=== PATIENT | female | born 1955 | race Caucasian/White ===

== ENCOUNTER → 2017-12-06 09:06 | Outpatient (CLI) | payer OTHER, SELFPAY ==
[2017-12-06 11:22] LABS: Alanine Aminotransferase 37 IU/L (9-52); Albumin Globulin Ratio 1.3 (1.0-2.8); Alkaline Phosphatase 90 U/L (38-126); Aspartate Aminotransferase 30 IU/L (14-36); Bilirubin Total 0.5 mg/dL (0.2-1.3); Blood Urea Nitrogen 18 mg/dL (7-17); Calcium 8.9 mg/dL (8.4-10.2); Carbon Dioxide 28 mmol/L (22-32); Chloride 105 mmol/L (98-107); Cholesterol 156 mg/dL (140-199); Estimated Glomerular Filt Rate > 60.0 mL/min (>60); Glucose 95 mg/dL (80-110); HDL Cholesterol 53 mg/dL (40-60); HEMOLYSIS < 15 (0-50); LDL Cholesterol Calculated 77 mg/dL (<100); Potassium 4.3 mmol/L (3.4-5.1); Sodium 141 mmol/L (137-145); Triglycerides 131 mg/dL (35-150)
[2017-12-06 11:52] LABS: Thyroid Stimulating Hormone 4.03 uIU/mL (0.47-4.68)
== END ==
PROVIDERS: PCP Physician Assistant; Visit Provider Physician Assistant
DX: E03.9 Hypothyroidism, unspecified (principal); I10 Essential (primary) hypertension; E78.2 Mixed hyperlipidemia
CPT/HCPCS: 36415; 80053; 80061; 84443

== ENCOUNTER → 2018-03-12 15:24 | Outpatient (CLI) | payer OTHER, SELFPAY ==
--- NOTE | 2018-03-12 15:28 | DI.MG.S_ITS ---
BILATERAL DIGITAL SCREENING MAMMOGRAM 3D/2D WITH CAD: 03/12/2018 CLINICAL: Routine screening. Comparison is made to exams dated: 08/16/2016 mammogram, 08/14/2015 mammogram, and 07/27/2014 mammogram - [facility]. There are scattered fibroglandular elements in both breasts. Current study was also evaluated with a Computer Aided Detection (CAD) system. No significant masses, calcifications, or other findings are seen in either breast. There has been no significant interval change. IMPRESSION: NEGATIVE There is no mammographic evidence of malignancy. A 1 year screening mammogram is recommended. This exam was interpreted at Station ID: [id number]. NOTE: For mammograms, a report in lay terms will be sent to the patient. Approximately 15% of breast malignancies will not be visualized mammographically. In the management of a palpable breast mass, a negative mammogram must not discourage biopsy of a clinically suspicious lesion. Electronically Signed By: Eveline zuniga/adriano:03/12/2018 16:40:55 letter sent: Normal Exam ACR BI-RADS Category 1: Negative 3341F
== END ==
PROVIDERS: PCP Physician Assistant; Visit Provider Physician Assistant
DX: Z12.31 Encounter for screening mammogram for malignant neoplasm of breast (principal)
CPT/HCPCS: 77063; 77067

== ENCOUNTER → 2018-12-05 09:09 | Outpatient (CLI) | payer OTHER, SELFPAY ==
[2018-12-05 10:19] LABS: Alanine Aminotransferase 27 IU/L (9-52); Albumin Globulin Ratio 1.3 (1.0-2.8); Alkaline Phosphatase 84 U/L (38-126); Aspartate Aminotransferase 28 IU/L (14-36); BUN Creatinine Ratio 22.2 (6-22); Bilirubin Total 0.5 mg/dL (0.2-1.3); Blood Urea Nitrogen 20 mg/dL (7-17); Calcium 9.1 mg/dL (8.4-10.2); Carbon Dioxide 27 mmol/L (22-32); Chloride 107 mmol/L (98-107); Cholesterol 136 mg/dL (140-199); Estimated Glomerular Filt Rate > 60.0 mL/min (>60); Glucose 89 mg/dL (80-110); HDL Cholesterol 53 mg/dL (40-60); HEMOLYSIS < 15 (0-50); LDL Cholesterol Calculated 68 mg/dL (<100); Potassium 4.1 mmol/L (3.4-5.1); Sodium 142 mmol/L (137-145); Triglycerides 73 mg/dL (35-150)
[2018-12-05 10:49] LABS: Thyroid Stimulating Hormone 2.12 uIU/mL (0.47-4.68)
[2018-12-05 15:33] LABS: Microalbumi Creatinin Ratio Ur 14.3 ug/mg CR (<30); Microalbumin Urine Random 1.9 mg/dL (0-1.6)
== END ==
PROVIDERS: PCP Physician Assistant; Visit Provider Physician Assistant
DX: E03.9 Hypothyroidism, unspecified (principal); E78.2 Mixed hyperlipidemia; I10 Essential (primary) hypertension
CPT/HCPCS: 36415; 80053; 80061; 82043; 82570; 84443

== ENCOUNTER → 2019-03-09 15:20 | Outpatient (CLI) | payer OTHER, SELFPAY | PROVIDERS: PCP Physician Assistant | DX: Z23 Encounter for immunization (principal) | CPT/HCPCS: 90471; 90662 ==

== ENCOUNTER → 2019-06-03 09:04 | Outpatient (CLI) | payer OTHER, SELFPAY ==
--- NOTE | 2019-06-03 | DI.MG.S_ITS ---
BILATERAL DIGITAL SCREENING MAMMOGRAM 3D/2D WITH CAD: 06/03/2019 CLINICAL: Routine screening. Comparison is made to exams dated: 03/12/2018 mammogram, 08/16/2016 mammogram, and 08/14/2015 mammogram - [facility]. There are scattered fibroglandular elements in both breasts. Current study was also evaluated with a Computer Aided Detection (CAD) system. There is a new oval equal density asymmetry with a circumscribed margin in the right breast anterior depth medial region seen on the craniocaudal view only. There is an oval low density asymmetry with an indistinct and circumscribed margin in the left breast middle depth inferior region seen on the mediolateral oblique view only. No other significant masses or calcifications are seen in either breast. IMPRESSION: INCOMPLETE: NEEDS ADDITIONAL IMAGING EVALUATION The new oval equal density asymmetry in the right breast anterior depth medial region seen on the craniocaudal view only is indeterminate. Mediolateral and spot compression views as well as additional views with possible ultrasound are recommended. The oval low density asymmetry in the left breast middle depth inferior region seen on the mediolateral oblique view only is indeterminate. Mediolateral and spot compression views as well as additional views with possible ultrasound are recommended. This exam was interpreted at Station ID: [id number]. NOTE: For mammograms, a report in lay terms will be sent to the patient. Approximately 15% of breast malignancies will not be visualized mammographically. In the management of a palpable breast mass, a negative mammogram must not discourage biopsy of a clinically suspicious lesion. Electronically Signed By: Jose Alberto fernandez/adriano:06/03/2019 10:40:35 letter sent: Additional Imaging Needed ACR BI-RADS Category 0: Incomplete 3340F
== END ==
PROVIDERS: PCP Physician Assistant; Visit Provider Physician Assistant
DX: Z12.31 Encounter for screening mammogram for malignant neoplasm of breast (principal)
CPT/HCPCS: 77063; 77067

== ENCOUNTER → 2019-06-24 12:35 | Outpatient (CLI) | payer OTHER, SELFPAY ==
--- NOTE | 2019-06-24 12:37 | DI.US.S_ITS ---
ULTRASOUND OF RIGHT BREAST: 06/24/2019 CLINICAL: Abn mammo. Comparison is made to exams dated: 06/24/2019 mammogram, 06/03/2019 mammogram, 03/12/2018 mammogram, 08/16/2016 mammogram, and 08/14/2015 mammogram - [facility]. Color flow ultrasound of the right breast was performed on the areas of interest. Chan scale images of the real-time examination were reviewed. There are clustered microcysts in the right breast at 3 o'clock middle depth. This correlates with mammography findings. IMPRESSION: PROBABLY BENIGN The clustered microcysts in the right breast is probably benign. A follow-up mammogram and an ultrasound in 6 months is recommended to demonstrate stability. This exam was interpreted at Station ID: [id number]. Electronically Signed By: Eveline zuniga/:06/24/2019 17:32:54 letter sent: Followup Recommended Ultrasound BI-RADS: 3 Probably benign
--- NOTE | 2019-06-24 12:37 | DI.US.S_ITS ---
PROCEDURE: US BREAST LT LIMITED COMPARISON: [facility], MG, MM SCREENING MAMMO BI, 06/03/2019, 9:17. [facility], , MM DIAGNOSTIC MAMMO BI, 06/24/2019, 13:03. INDICATIONS: ABN MAMMO FINDINGS: IMPRESSION: Dictated by: Eveline Morrow M.D. on 06/24/2019 at 17:26 Approved by: Eveline Morrow M.D. on 06/24/2019 at 17:31
--- NOTE | 2019-06-24 12:37 | DI.MG.S_ITS ---
BILATERAL DIGITAL DIAGNOSTIC MAMMOGRAM 3D/2D WITH ADDITIONAL VIEWS: 06/24/2019 CLINICAL: Additional evaluation requested from prior study. Comparison is made to exams dated: 06/03/2019 mammogram, 03/12/2018 mammogram, and 08/16/2016 mammogram - [facility]. There are scattered fibroglandular elements in both breasts. There is a focal asymmetry in the right breast at 5 o'clock middle depth. There is a focal asymmetry in the left breast at 6 o'clock middle depth. There also is a focal asymmetry in the left breast at 7 o'clock middle depth. No other significant masses or calcifications are seen in either breast. IMPRESSION: INCOMPLETE: NEEDS ADDITIONAL IMAGING EVALUATION The focal asymmetry in the right breast at 5 o'clock middle depth is indeterminate. The focal asymmetry in the left breast at 6 o'clock middle depth is indeterminate. The focal asymmetry in the left breast at 7 o'clock middle depth is indeterminate. A targeted ultrasound of the bilateral breasts is recommended and will be performed immediately following this exam. This exam was interpreted at Station ID: [id number]. NOTE: For mammograms, a report in lay terms will be sent to the patient. Approximately 15% of breast malignancies will not be visualized mammographically. In the management of a palpable breast mass, a negative mammogram must not discourage biopsy of a clinically suspicious lesion. Electronically Signed By: Eveline Morrow M.D. lk/:06/24/2019 13:19:35 ACR BI-RADS Category 0: Incomplete 3340F
== END ==
PROVIDERS: PCP Physician Assistant; Visit Provider Physician Assistant
DX: R92.8 Other abnormal and inconclusive findings on diagnostic imaging of breast (principal); N60.02 Solitary cyst of left breast; N64.89 Other specified disorders of breast
CPT/HCPCS: 76642; 77066; G0279

== ENCOUNTER → 2019-12-18 08:36 | Outpatient (CLI) | payer MEDICARE, SELFPAY ==
[2019-12-18 09:49] LABS: Add Manual Diff / Slide Review NO; Basophils Absolute Auto 100 /uL (0-100); Basophils Percent Auto 1.4 % (0-2); Eosinophils Absolute Auto 200 /uL (0-450); Eosinophils Percent Auto 3.6 % (2-4); Hematocrit 41.2 % (36-46); Hemoglobin 13.7 g/dL (12.0-16.0); Lymphocytes Absolute Auto 1500 /uL (1100-4500); Lymphocytes Percent Auto 30.1 % (25-40); Mean Corpuscular HGB Conc 33.3 % (30-36); Mean Corpuscular Volume 90.1 fL (80-100); Monocytes Absolute Auto 500 /uL (0-900); Monocytes Percent Auto 8.9 % (3-14); Neutrophils Absolute Auto 2800 /uL (1500-7000); Platelet Count 249 X10^3/uL (150-400); Red Blood Cell Count 4.57 X10^6/uL (4.0-5.2)
[2019-12-18 10:00] LABS: Alanine Aminotransferase 33 IU/L (<35); Albumin 3.9 g/dL (3.5-5.0); Albumin Globulin Ratio 1.4 (1.0-2.8); Alkaline Phosphatase 106 U/L (38-126); Aspartate Aminotransferase 35 IU/L (14-36); BUN Creatinine Ratio 25.3 (6-22); Bilirubin Total 0.5 mg/dL (0.2-1.3); Blood Urea Nitrogen 23 mg/dL (7-17); Calcium 9.2 mg/dL (8.4-10.2); Carbon Dioxide 25 mmol/L (22-32); Chloride 106 mmol/L (98-107); Cholesterol 150 mg/dL (140-199); Estimated Glomerular Filt Rate > 60.0 mL/min (>60); Globulin 2.7 g/dL (1.7-4.1); Glucose 91 mg/dL (80-110); HDL Cholesterol 65 mg/dL (40-60); HEMOLYSIS < 15 (0-50); LDL Cholesterol Calculated 67 mg/dL (<100); Potassium 4.5 mmol/L (3.4-5.1); Sodium 137 mmol/L (137-145); Total Protein 6.6 g/dL (6.3-8.2); Triglycerides 91 mg/dL (35-150)
[2019-12-18 10:30] LABS: TSH w/ Reflex to FT4 3.98 uIU/mL (0.47-4.68)
== END ==
PROVIDERS: PCP Registered Nurse Diabetes Educator; Referring Provider Registered Nurse Diabetes Educator; Visit Provider Registered Nurse Diabetes Educator
DX: E03.9 Hypothyroidism, unspecified (principal); E78.2 Mixed hyperlipidemia; I10 Essential (primary) hypertension
CPT/HCPCS: 36415; 80053; 80061; 84443; 85025

== ENCOUNTER → 2019-12-19 10:40 | Outpatient (CLI) | payer MEDICARE, SELFPAY | PROVIDERS: PCP Registered Nurse Diabetes Educator; Visit Provider Physician Assistant | DX: R30.0 Dysuria (principal) | CPT/HCPCS: 87086 ==

== ENCOUNTER → 2020-02-04 09:30 | Outpatient (CLI) | payer MEDICARE, SELFPAY ==
--- NOTE | 2020-02-04 09:43 | DI.MG.S_ITS ---
Patient Name: ASHU YU date: 1955 Sex: F Attending Physician: Oli Indications: Date: 02/04/2020 09:36 At the request of: AURA BAUMANN Procedure: MM diagnostic mammo BI BILATERAL DIGITAL DIAGNOSTIC MAMMOGRAM 3D/2D SHORT-TERM FOLLOW-UP: 02/04/2020 CLINICAL: Patient returns for a 6 month follow up of bilateral breasts. Comparison is made to exams dated: 06/24/2019 mammogram, 06/03/2019 mammogram, 03/12/2018 mammogram, 06/24/2019 ultrasound, and 06/24/2019 ultrasound - [facility]. There are scattered fibroglandular elements in both breasts. There is a focal asymmetry in the right breast at 4 o'clock middle depth. This is not significantly changed. There is a focal asymmetry in the left breast at 6 o'clock middle depth. This is not significantly changed. There also is a focal asymmetry in the left breast at 7 o'clock middle depth. This is not significantly changed. No other significant masses or calcifications are seen in either breast. IMPRESSION: INCOMPLETE: NEEDS ADDITIONAL IMAGING EVALUATION A targeted ultrasound of the bilateral breasts is recommended and will be performed immediately following this exam. The focal asymmetry in the right breast at 4 o'clock middle depth is indeterminate. An ultrasound is recommended. The focal asymmetry in the left breast at 6 o'clock middle depth is indeterminate. An ultrasound is recommended. The focal asymmetry in the left breast at 7 o'clock middle depth is indeterminate. An ultrasound is recommended. This exam was interpreted at Station ID: [id number]. Continued Report - Page 2 of 2 Patient Name: ASHU YU date: 1955 Sex: F Attending Physician: Oli Indications: Date: 02/04/2020 09:36 At the request of: AURA BAUMANN Procedure: MM diagnostic mammo BI NOTE: For mammograms, a report in lay terms will be sent to the patient. Approximately 15% of breast malignancies will not be visualized mammographically. In the management of a palpable breast mass, a negative mammogram must not discourage biopsy of a clinically suspicious lesion. Electronically Signed By: Evaristo cunningham/adriano:02/04/2020 12:25:26 ACR BI-RADS Category 0: Incomplete 3340F
--- NOTE | 2020-02-04 10:43 | DI.US.S_ITS ---
Patient Name: ASHU YU date: 1955 Sex: F Attending Physician: Oli Indications: Date: 02/04/2020 10:36 At the request of: AURA BAUMANN Procedure: US breast LT limited LIMITED ULTRASOUND OF LEFT BREAST: 02/04/2020 CLINICAL: 6 month follow-up of cysts. Comparison is made to exams dated: 02/04/2020 mammogram, 06/24/2019 ultrasound, 03/12/2018 mammogram, and 08/16/2016 [facility]. Color flow ultrasound of the left breast was performed. Chan scale images of the real-time examination were reviewed. There is a 1.1 cm complicated cyst in the left breast at 7 o'clock anterior depth. This abnormality is not significantly changed and correlates with mammography findings. There also is a 0.6 cm complicated cyst in the left breast at 6 o'clock in the retroareolar region. This abnormality is not significantly changed and correlates with mammography findings. Additionally, there is a 0.5 cm complicated cyst in the left breast at 5 o'clock in the retroareolar region. This abnormality is not significantly changed. IMPRESSION: PROBABLY BENIGN The 1.1 cm complicated cyst in the left breast at 7 o'clock anterior depth is probably benign. The 0.6 cm complicated cyst in the left breast at 6 o'clock in the retroareolar region is probably benign. The 0.5 cm complicated cyst in the left breast at 5 o'clock in the retroareolar region is probably benign. A follow-up mammogram and an ultrasound in 6 months is recommended to demonstrate stability. This exam was interpreted at Station ID: [id number]. Electronically Signed By: Evaristo cunningham/adriano:02/04/2020 14:50:28 letter sent: Followup Recommended Ultrasound BI-RADS: 3 Probably benign
--- NOTE | 2020-02-04 10:51 | DI.US.S_ITS ---
Patient Name: ASHU YU date: 1955 Sex: F Attending Physician: Oli Indications: Date: 02/04/2020 10:36 At the request of: AURA BAUMANN Procedure: US breast RT limited LIMITED ULTRASOUND OF RIGHT BREAST: 02/04/2020 CLINICAL: 6 month follow-up of cysts. Comparison is made to exams dated: 02/04/2020 mammogram, 06/24/2019 ultrasound, 06/24/2019 mammogram, and 06/03/2019 mammogram - [facility]. Color flow ultrasound of the right breast was performed. Chan scale images of the real-time examination were reviewed. There is a cluster of micro cysts in the right breast at 3 o'clock middle depth. These abnormalities are not significantly changed and correlates with mammography findings. IMPRESSION: PROBABLY BENIGN The cluster of micro cysts in the right breast is probably benign. A follow-up mammogram and an ultrasound in 6 months is recommended to demonstrate stability. This exam was interpreted at Station ID: [id number]. Electronically Signed By: Evaristo cunningham/adriano:02/04/2020 14:52:32 Ultrasound BI-RADS: 3 Probably benign
== END ==
PROVIDERS: PCP Registered Nurse Diabetes Educator; Referring Provider Registered Nurse Diabetes Educator; Visit Provider Registered Nurse Diabetes Educator
DX: R92.8 Other abnormal and inconclusive findings on diagnostic imaging of breast (principal); N64.89 Other specified disorders of breast; N60.02 Solitary cyst of left breast
CPT/HCPCS: 76642; 77066; G0279

== ENCOUNTER → 2020-07-27 08:48 | Outpatient (CLI) | payer MEDICARE, SELFPAY ==
[2020-07-27] MEDS: COVID-19 VACC #1, MRNA(MOD) 100 MCG/0.5 ML VIAL IM (08:57)
== END ==
PROVIDERS: PCP Registered Nurse Diabetes Educator; Visit Provider Internal Medicine
DX: Z23 Encounter for immunization (principal)
CPT/HCPCS: 0011A; 91301

== ENCOUNTER → 2020-08-24 08:32 | Outpatient (CLI) | payer MEDICARE, SELFPAY ==
[2020-08-24] MEDS: COVID-19 VACC #2, MRNA(MOD) 100 MCG/0.5 ML VIAL IM (08:38)
== END ==
PROVIDERS: PCP Registered Nurse Diabetes Educator; Visit Provider Internal Medicine
DX: Z23 Encounter for immunization (principal)
CPT/HCPCS: 0012A; 91301

== ENCOUNTER → 2020-09-26 08:09 | Outpatient (CLI) | payer MEDICARE, SELFPAY | PROVIDERS: PCP Registered Nurse Diabetes Educator; Visit Provider Physician Assistant | DX: R30.0 Dysuria (principal) | CPT/HCPCS: 87086 ==

== ENCOUNTER → 2020-10-06 09:27 | Outpatient (CLI) | payer MEDICARE, SELFPAY ==
--- NOTE | 2020-10-06 09:28 | DI.US.S_ITS ---
ULTRASOUND OF LEFT BREAST: 10/06/2020 CLINICAL: 6 month follow-up of cysts. Comparison is made to exams dated: 10/06/2020 ultrasound, 10/06/2020 mammogram, 02/04/2020 ultrasound, 02/04/2020 ultrasound, 02/04/2020 mammogram, and 06/24/2019 [facility]. Color flow and real-time ultrasound of the left breast were performed. Chan scale images of the real-time examination were reviewed. There is a 1.2 cm x 1.3 cm x 0.8 cm oval complicated cyst in the left breast at 7 o'clock middle depth 5 cm from the nipple. This oval complicated cyst displays posterior acoustic enhancement. This abnormality is increased in size but has been present since 2016, has become increasingly cystic, and correlates with mammography findings. Color flow imaging demonstrates that there is no vascularity present. There also is a 0.4 cm round cyst in the left breast at 6 o'clock middle depth. This abnormality is decreased in size. Color flow imaging demonstrates that there is no vascularity present. Additionally, there is a 0.4 cm round cyst in the left breast at 6 o'clock middle depth. This abnormality is decreased in size. Color flow imaging demonstrates that there is no vascularity present. 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 A final follow-up ultrasound in 6 months is recommended. The 0.4 cm round cyst in the left breast at 6 o'clock middle depth is consistent with a complicated cyst and is probably benign. The 0.4 cm round cyst in the left breast at 6 o'clock middle depth is probably benign. A follow-up left ultrasound in 6 months is recommended to demonstrate stability of these areas . Findings and recommendations were conveyed to the patient at time of exam. This exam was interpreted at Station ID: [id number]. Electronically Signed By: Britta finley/:10/06/2020 12:08:08 letter sent: Followup Recommended Ultrasound BI-RADS: 3 Probably benign
--- NOTE | 2020-10-06 09:28 | DI.MG.S_ITS ---
BILATERAL DIGITAL DIAGNOSTIC MAMMOGRAM 3D/2D SHORT-TERM FOLLOW-UP: 10/06/2020 CLINICAL: Short term follow up for bilateral breasts. Comparison is made to exams dated: 02/04/2020 mammogram, 06/24/2019 mammogram, 06/03/2019 mammogram, and 03/12/2018 mammogram - [facility]. There are scattered fibroglandular elements in both breasts. There is a stable focal asymmetry in the right breast at 4 o'clock middle depth. There is a stable focal asymmetry in the left breast at 6 o'clock middle depth. There also is a focal asymmetry in the left breast at 7 o'clock anterior depth. This is not significantly changed. No other significant masses or calcifications are seen in either breast. Mammograms are otherwise stable. IMPRESSION: INCOMPLETE: NEEDS ADDITIONAL IMAGING EVALUATION The asymmetry in the right breast at 4 o'clock middle depth is stable. The asymmetry in the left breast at 6 o'clock middle depth is stable. The asymmetry in the left breast at 7 o'clock anterior depth is stable. A targeted ultrasound of the bilateral breasts is recommended to verify stability of all previously described findings, and will be performed immediately following this exam. This exam was interpreted at Station ID: [id number]. NOTE: For mammograms, a report in lay terms will be sent to the patient. Approximately 15% of breast malignancies will not be visualized mammographically. In the management of a palpable breast mass, a negative mammogram must not discourage biopsy of a clinically suspicious lesion. Electronically Signed By: Brtita finley/:10/06/2020 10:14:41 ACR BI-RADS Category 0: Incomplete 3340F
--- NOTE | 2020-10-06 09:28 | DI.US.S_ITS ---
LIMITED ULTRASOUND OF RIGHT BREAST: 10/06/2020 CLINICAL: 6 month follow-up of cysts. Comparison is made to exams dated: 10/06/2020 mammogram, 02/04/2020 ultrasound, 02/04/2020 ultrasound, 02/04/2020 mammogram, 06/24/2019 ultrasound, and 06/24/2019 ultrasound - [facility]. Color flow and real-time ultrasound of the right breast were performed. Chan scale images of the real-time examination were reviewed. There is a possible 0.5 cm oval cyst or lymph node in the right breast at 3 o'clock middle depth 4 cm from the nipple. This abnormality is decreased in size and correlates with previous ultrasound findings and probably mammography findings. Color flow imaging demonstrates that there is no vascularity present. IMPRESSION: PROBABLY BENIGN The possible 0.5 cm oval cyst or intramammary lymph node in the right breast is stable and probably benign. A follow-up right ultrasound in 6 months is recommended to demonstrate stability. Findings and recommendations were conveyed to the patient at time of exam. This exam was interpreted at Station ID: [id number]. Electronically Signed By: Britta finley/:10/06/2020 11:58:53 letter sent: Followup Recommended Ultrasound BI-RADS: 3 Probably benign
== END ==
PROVIDERS: PCP Registered Nurse Diabetes Educator; Referring Provider Registered Nurse Diabetes Educator; Visit Provider Registered Nurse Diabetes Educator
DX: N60.01 Solitary cyst of right breast (principal); R92.8 Other abnormal and inconclusive findings on diagnostic imaging of breast; N60.02 Solitary cyst of left breast
CPT/HCPCS: 76642; 77066; G0279

== ENCOUNTER → 2021-01-11 08:42 | Outpatient (CLI) | payer MEDICARE, SELFPAY ==
[2021-01-11 09:13] LABS: Add Manual Diff / Slide Review NO; Basophils Absolute Auto 100 /uL (0-100); Basophils Percent Auto 1.2 % (0-2); Eosinophils Absolute Auto 200 /uL (0-450); Eosinophils Percent Auto 3.5 % (2-4); Hematocrit 40.6 % (36-46); Hemoglobin 13.5 g/dL (12.0-16.0); Lymphocytes Absolute Auto 1900 /uL (1100-4500); Lymphocytes Percent Auto 32.2 % (25-40); Mean Corpuscular HGB Conc 33.4 % (30-36); Mean Corpuscular Hemoglobin 30.4 PG (26-34); Mean Corpuscular Volume 91.1 fL (80-100); Monocytes Absolute Auto 500 /uL (0-900); Monocytes Percent Auto 7.9 % (3-14); Neutrophils Absolute Auto 3200 /uL (1500-7000); Neutrophils Percent Auto 55.2 % (50-75); Platelet Count 256 X10^3/uL (150-400); Red Blood Cell Count 4.45 X10^6/uL (4.0-5.2); Red Cell Distribution Width 13.3 % (11.6-14.8); White Blood Cell Count 5.9 X10^3/uL (4.5-11.0)
[2021-01-11 09:24] LABS: Alanine Aminotransferase 19 IU/L (<35); Albumin 3.9 g/dL (3.5-5.0); Albumin Globulin Ratio 1.4 (1.0-2.8); Alkaline Phosphatase 88 U/L (38-126); Aspartate Aminotransferase 30 IU/L (14-36); Bilirubin Total 0.3 mg/dL (0.2-1.3); Blood Urea Nitrogen 20 mg/dL (7-17); Carbon Dioxide 24 mmol/L (22-32); Chloride 109 mmol/L (98-107); Cholesterol 146 mg/dL (140-199); Estimated Glomerular Filt Rate > 60.0 mL/min (>60); Globulin 2.8 g/dL (1.7-4.1); Glucose 101 mg/dL (80-110); HDL Cholesterol 56 mg/dL (40-60); HEMOLYSIS < 15 (0-50); LDL Cholesterol Calculated 71 mg/dL (<100); Potassium 4.4 mmol/L (3.4-5.1); Sodium 139 mmol/L (137-145); Total Protein 6.7 g/dL (6.3-8.2); Triglycerides 95 mg/dL (35-150)
[2021-01-11 09:56] LABS: TSH w/ Reflex to FT4 2.59 uIU/mL (0.47-4.68)
== END ==
PROVIDERS: PCP Registered Nurse Diabetes Educator; Referring Provider Registered Nurse Diabetes Educator; Visit Provider Registered Nurse Diabetes Educator
DX: E03.9 Hypothyroidism, unspecified (principal); I10 Essential (primary) hypertension; E78.2 Mixed hyperlipidemia
CPT/HCPCS: 36415; 80053; 80061; 84443; 85025

== ENCOUNTER → 2021-04-10 11:19 | Outpatient (CLI) | payer MEDICARE, SELFPAY | PROVIDERS: PCP Registered Nurse Diabetes Educator; Visit Provider Nurse Practitioner Family | DX: N39.0 Urinary tract infection, site not specified (principal) | CPT/HCPCS: 87086 ==

== ENCOUNTER → 2021-05-16 15:03 | Outpatient (CLI) | payer MEDICARE, SELFPAY ==
--- NOTE | 2021-05-16 15:04 | DI.RAD.S_ITS ---
PROCEDURE: XR DEXA AXIAL SKELETON INDICATIONS: osteoporosis screen COMPARISON: None. FINDINGS: This blank DEXA report has been sent in error by the PACS system. The correct and complete report will be forthcoming in 1-2 days. Thank you for your patience and understanding. Dictated by: Luisa Serrano MD, PhD on 05/16/2021 at 17:07 Approved by: Luisa Serrano MD, PhD on 05/16/2021 at 17:07
== END ==
PROVIDERS: PCP Registered Nurse Diabetes Educator; Referring Provider Registered Nurse Diabetes Educator; Visit Provider Registered Nurse Diabetes Educator
DX: M85.851 Other specified disorders of bone density and structure, right thigh (principal); Z13.820 Encounter for screening for osteoporosis; Z78.0 Asymptomatic menopausal state
CPT/HCPCS: 77080

== ENCOUNTER → 2021-06-11 12:38 | Outpatient (CLI) | payer MEDICARE, SELFPAY ==
--- NOTE | 2021-06-11 12:46 | DI.US.S_ITS ---
LIMITED ULTRASOUND OF LEFT BREAST: 06/11/2021 CLINICAL: Patient returns today to evaluate multiple focal asymmetries in the left breast. Comparison is made to exams dated: 10/06/2020 ultrasound, 10/06/2020 mammogram, 02/04/2020 ultrasound, 02/04/2020 mammogram, 06/24/2019 ultrasound, and 06/24/2019 mammogram - [facility]. Color flow and real-time ultrasound of the left breast were performed. Chan scale images of the real-time examination were reviewed. Multiple previous described cysts are unchanged in size with no suspicious features developed in the interval since prior exam. No suspicious shadowing mass. IMPRESSION: BENIGN There is no sonographic evidence of malignancy. Multiple cysts are unchanged and are benign in appearance. Return to annual screening mammography schedule recommended. This exam was interpreted at Station ID: [id number]. Electronically Signed By: Tenzin Christie M.D. jr/:06/11/2021 14:51:52 Entry: - 06/12/2021 09:56:34 Ultrasound BI-RADS: 2 Benign
--- NOTE | 2021-06-11 12:46 | DI.US.S_ITS ---
LIMITED ULTRASOUND OF RIGHT BREAST: 06/11/2021 CLINICAL: Patient returns today to evaluate a focal asymmetry in the right breast. Comparison is made to exams dated: 10/06/2020 ultrasound, 10/06/2020 mammogram, 02/04/2020 ultrasound, 02/04/2020 mammogram, 06/24/2019 ultrasound, and 06/24/2019 mammogram - [facility]. Color flow and real-time ultrasound of the right breast were performed. Chan scale images of the real-time examination were reviewed. No chance in size of the 0.5 cm oval cyst in the right breast at 3 o'clock middle depth 4 cm from the nipple. IMPRESSION: BENIGN The 0.5 cm oval cyst in the right breast is probably benign. Return to annual mammogram screening schedule is recommended. This exam was interpreted at Station ID: [id number]. Electronically Signed By: Tenzin Christie M.D. jr/:06/11/2021 14:54:47 letter sent: Normal Exam Ultrasound BI-RADS: 2 Benign
== END ==
PROVIDERS: PCP Registered Nurse Diabetes Educator; Referring Provider Registered Nurse Diabetes Educator; Visit Provider Registered Nurse Diabetes Educator
DX: R92.8 Other abnormal and inconclusive findings on diagnostic imaging of breast (principal); N60.01 Solitary cyst of right breast; N60.02 Solitary cyst of left breast
CPT/HCPCS: 76642

== ENCOUNTER → 2021-12-11 13:12 | Outpatient (CLI) | payer MEDICARE, SELFPAY ==
--- NOTE | 2021-12-11 13:14 | DI.MG.S_ITS ---
BILATERAL DIGITAL SCREENING MAMMOGRAM 3D/2D WITH CAD: 12/11/2021 CLINICAL: Routine screening. Comparison is made to exams dated: 10/06/2020 mammogram, 02/04/2020 mammogram, 06/24/2019 mammogram, 06/11/2021 ultrasound, 03/12/2018 mammogram, and 08/16/2016 mammogram - [facility]. There are scattered fibroglandular elements in both breasts. Current study was also evaluated with a Computer Aided Detection (CAD) system. There are benign cysts in the left breast. No significant masses, calcifications, or other findings are seen in either breast. There has been no significant interval change. IMPRESSION: BENIGN There is no mammographic evidence of malignancy. A 1 year screening mammogram is recommended. Based on the Tyrer Cuzick model (a risk assessment model) the patient's lifetime risk is 3.9% and her 10 year risk is 2.0%. According to the ACR, ACS, and NCCN guidelines, an annual breast MRI exam along with mammogram is recommended if the patient's lifetime risk is 20% or greater. This exam was interpreted at Station ID: [id number]. NOTE: For mammograms, a report in lay terms will be sent to the patient. Approximately 15% of breast malignancies will not be visualized mammographically. In the management of a palpable breast mass, a negative mammogram must not discourage biopsy of a clinically suspicious lesion. Electronically Signed By: Andrew wasserman/adriano:12/12/2021 14:59:39 letter sent: Normal Exam ACR BI-RADS Category 2: Benign Finding(s) 3342F
== END ==
PROVIDERS: PCP Registered Nurse Diabetes Educator; Referring Provider Registered Nurse Diabetes Educator; Visit Provider Registered Nurse Diabetes Educator
DX: Z12.31 Encounter for screening mammogram for malignant neoplasm of breast (principal)
CPT/HCPCS: 77063; 77067

== ENCOUNTER → 2022-03-19 08:55 | Outpatient (CLI) | payer MEDICARE, SELFPAY ==
[2022-03-19 10:09] LABS: Hematocrit 39.7 % (36-46); Hemoglobin 13.8 g/dL (12.0-16.0); Mean Corpuscular HGB Conc 34.7 % (30-36); Mean Corpuscular Volume 89.2 fL (80-100); Platelet Count 236 X10^3/uL (150-400); Red Blood Cell Count 4.45 X10^6/uL (4.0-5.2); Red Cell Distribution Width 13.6 % (11.6-14.8); White Blood Cell Count 5.7 X10^3/uL (4.5-11.0)
[2022-03-19 10:39] LABS: Alanine Aminotransferase 26 IU/L (<35); Albumin 3.9 g/dL (3.5-5.0); Albumin Globulin Ratio 1.3 (1.0-2.8); Alkaline Phosphatase 98 U/L (38-126); Aspartate Aminotransferase 30 IU/L (14-36); BUN Creatinine Ratio 18.9 (6-22); Bilirubin Total 0.5 mg/dL (0.2-1.3); Blood Urea Nitrogen 20 mg/dL (7-17); Calcium 8.8 mg/dL (8.4-10.2); Carbon Dioxide 28 mmol/L (22-32); Chloride 104 mmol/L (98-107); Cholesterol 147 mg/dL (140-199); Estimated Glomerular Filt Rate 57 mL/min (>60); Glucose 92 mg/dL (80-110); HDL Cholesterol 57 mg/dL (40-60); HEMOLYSIS < 15 (0-50); LDL Cholesterol Calculated 71 mg/dL (<100); Potassium 4.5 mmol/L (3.4-5.1); Sodium 139 mmol/L (137-145); Total Protein 6.9 g/dL (6.3-8.2); Triglycerides 93 mg/dL (35-150)
[2022-03-19 11:28] LABS: Free T4, Direct Thyroxine 1.24 ng/dL (0.78-2.19)
== END ==
PROVIDERS: PCP Registered Nurse Diabetes Educator; Referring Provider Registered Nurse Diabetes Educator; Visit Provider Registered Nurse Diabetes Educator
DX: E78.2 Mixed hyperlipidemia (principal); I10 Essential (primary) hypertension; R73.01 Impaired fasting glucose
CPT/HCPCS: 36415; 80053; 80061; 84439; 84443; 85027

== ENCOUNTER → 2022-06-13 06:59 | Outpatient (CLI) | payer MEDICARE, SELFPAY ==
[2022-06-13 08:31] LABS: Hematocrit 42.3 % (36-46); Hemoglobin 13.9 g/dL (12.0-16.0); Mean Corpuscular HGB Conc 32.8 % (30-36); Mean Corpuscular Hemoglobin 29.9 PG (26-34); Mean Corpuscular Volume 91.2 fL (80-100); Platelet Count 269 X10^3/uL (150-400); Red Blood Cell Count 4.64 X10^6/uL (4.0-5.2); Red Cell Distribution Width 12.8 % (11.6-14.8); White Blood Cell Count 6.6 X10^3/uL (4.5-11.0)
[2022-06-13 08:40] LABS: Alanine Aminotransferase 20 IU/L (<35); Alkaline Phosphatase 96 U/L (38-126); Aspartate Aminotransferase 28 IU/L (14-36); BUN Creatinine Ratio 19.2 (6-22); Bilirubin Total 0.6 mg/dL (0.2-1.3); Blood Urea Nitrogen 19 mg/dL (7-17); Calcium 8.6 mg/dL (8.4-10.2); Carbon Dioxide 26 mmol/L (22-32); Chloride 104 mmol/L (98-107); Cholesterol 149 mg/dL (140-199); Estimated Glomerular Filt Rate > 60 mL/min (>60); Glucose 93 mg/dL (80-110); HDL Cholesterol 54 mg/dL (40-60); HEMOLYSIS < 15 (0-50); LDL Cholesterol Calculated 76 mg/dL (<100); Potassium 4.1 mmol/L (3.4-5.1); Sodium 139 mmol/L (137-145); Total Protein 7.4 g/dL (6.3-8.2); Triglycerides 97 mg/dL (35-150)
[2022-06-13 09:08] LABS: TSH w/ Reflex to FT4 2.19 uIU/mL (0.47-4.68)
[2022-06-14 17:06] LABS: Albumin Globulin Ratio 1.2 (1.0-2.8); Globulin 3.4 g/dL (1.7-4.1)
== END ==
PROVIDERS: PCP Registered Nurse Diabetes Educator; Referring Provider Registered Nurse Diabetes Educator; Visit Provider Registered Nurse Diabetes Educator
DX: I10 Essential (primary) hypertension (principal); E78.2 Mixed hyperlipidemia; E03.9 Hypothyroidism, unspecified; R73.01 Impaired fasting glucose
CPT/HCPCS: 36415; 80053; 80061; 84443; 85027

== ENCOUNTER 2022-07-25 05:08 | Emergency (ER) | payer MEDICARE, SELFPAY ==
[2022-07-25] VITALS (8 sets, daily range): BP systolic 145–179; BP diastolic 67–88; PULSE 63–83; RESP 18; TEMP 36.8; O2SAT 94–97; BMI 26.3
--- NOTE | 2022-07-25 05:18 | ED.BACK ---
HPI - Back Pain/Injury <Lj Alicea DO - Last Filed: 07/26/22 17:34> General Chief Complaint: Back Pain/Injury Stated Complaint: back pain Time Seen by Provider: 07/25/22 05:18 History of Present Illness HPI Narrative: 67F nonsmoker with history of hypertension and hyperlipidemia as well as hypothyroid presents with her by private auto evaluation a severe mid upper back pain that woke her from sleep. She states that she is been having some episodes of discomfort if not pressure wrapping around her chest for the past few days and a few twinges of pain in her upper back but this is significantly more intense. She denies associated symptoms such as dizziness, weakness or lightheadedness. She denies any blurred vision, trouble speech or discomfort, numbness or weakness of her arms. She has no nausea or vomiting and denies any abdominal. Related Data Home Medications Medication Instructions Recorded Confirmed VITAMIN D 400 iu PO Q DAY ##0 10/04/10 04/09/22 Calcium Carbonate/Magnesium Oxide 2 tab PO DAILY 12/08/18 04/09/22 Vitamin B-100 1 tab PO DAILY 12/08/18 04/09/22 Previous Rx's Medication Instructions Recorded varicella-zoster glycoE [id number] 50 mcg IM ONCE #1 ea 12/08/18 adj(PF) 50 mcg/0.5 mL IM susp, kit (Shingrix (PF)) pneumococcal 23-ulcille ps vaccine 25 0.5 ml IM ONCE #0.5 mL 03/27/21 mcg/0.5 mL injection solution (Pneumovax-23) atorvastatin 10 mg tablet (Lipitor) 10 mg PO HS #90 tabs 04/09/22 fluoxetine 40 mg capsule 40 mg PO DAILY #90 caps 04/09/22 lisinopril 10 mg tablet 10 mg PO Q DAY #90 tabs 04/09/22 levothyroxine 112 mcg tablet 112 mcg PO DAILY #90 tabs 06/15/22 Allergies Allergy/AdvReac Type Severity Reaction Status Date / Time No Known Drug Allergies Allergy Verified 04/09/22 11:15 Review of Systems <Lj Alicea DO - Last Filed: 07/26/22 17:34> Review of Systems Narrative: GENERAL: Denies chills, fatigue, malaise, fever, sweats. HEENT: Denies sinus pain, ear pain, sore throat, difficulty swallowing, dizziness. RESPIRATORY: Denies dyspnea, cough, wheezing, hemoptysis, sputum. CARDIOVASCULAR: see HPI GASTROINTESTINAL: Denies nausea, vomiting, abdominal pain, diarrhea, constipation, melena. : Denies dysuria, frequency, incontinence, hematuria, urinary retention. MUSCULOSKELETAL: see HPI SKIN: Denies rash, skin lesions, or other NEUROLOGIC: Denies weakness, headache, numbness, change in speech, confusion, seizures, incoordination. PSYCHIATRIC: No concerning psychosocial issues. 12 point review of systems is negative except for those stated above Patient History <Lj Alicea DO - Last Filed: 07/26/22 17:34> Medical History Actinic keratosis (03/2013) Anxiety (Unknown) Anxiety disorder (10/04/10) Benign neoplasm of cerebral meninges (10/04/10) Essential hypertension (10/04/10) History of colonic polyps (07/17/11) Hyperlipemia (Unknown) Hypertension (Unknown) Hypothyroidism (10/04/10) Hypothyroidism (Unknown) Impaired fasting blood sugar Mixed hyperlipidemia UTI (urinary tract infection) Surgical History Status post craniotomy (03/1999) Family History Brother Hyperlipidemia Heart disease Father Hyperlipidemia Heart disease Mother Hyperlipidemia Heart disease Congestive heart failure Bladder cancer Other Anxiety disorder Social History Smoking Status: Never smoker second hand exposure: No alcohol intake: current (a glass of wine a month. I just drink socially.) substance use type: does not use Smoking Status: Never smoker Exam <Lj Alicea DO - Last Filed: 07/26/22 17:34> Narrative Exam Narrative: GENERAL: [67] year old patient appears stated age. Well-developed patient, in mild distress. HEAD: Atraumatic. Normocephalic. EYES: Pupils equal round and reactive. Extraocular motions intact. No scleral icterus. No injection or drainage. ENT: Nose without bleeding, purulent drainage. Throat without erythema, tonsillar hypertrophy or exudate. Airway patent. NECK: Trachea midline. Non tender CARDIOVASCULAR: Regular rate and rhythm without murmurs, gallops, or rubs. RESPIRATORY: Clear to auscultation. Breath sounds equal bilaterally. No wheezes, rales, or rhonchi. GASTROINTESTINAL: Abdomen soft, non-tender, nondistended. EXTREMITIES: No edema or joint tenderness. BACK: There is some reproducible tenderness on palpation of the mid to upper thoracic paraspinal musculature bilaterally. No midline tenderness, no change with axial loading, no measurable weakness, numbness or tingling of her upper extremities. NEURO: AOx3. SKIN: No rash or erythema of visible areas Initial Vital Signs Initial Vital Signs: Vital Signs Temperature 98.2 F 07/25/22 05:20 Pulse Rate 83 07/25/22 05:20 Respiratory Rate 18 07/25/22 05:20 Blood Pressure 145/83 H 07/25/22 05:20 Pulse Oximetry 97 07/25/22 05:20 Oxygen Delivery Method Room Air 07/25/22 05:20 <Pool Villanueva MD - Last Filed: 07/30/22 10:25> Initial Vital Signs Initial Vital Signs: Vital Signs Temperature 98.2 F 07/25/22 05:20 Pulse Rate 83 07/25/22 05:20 Respiratory Rate 18 07/25/22 05:20 Blood Pressure 145/83 H 07/25/22 05:20 Pulse Oximetry 97 07/25/22 05:20 Oxygen Delivery Method Room Air 07/25/22 05:20 Course <Lj Alicea DO - Last Filed: 07/26/22 17:34> Orders Ordered: Discontinued Medications Sodium Chloride (Normal Saline 0.9%) 1,000 mls @ 150 mls/hr IV CONT CRISPIN Last Infusion: 07/25/22 07:58 Dose: 0 mls/hr Documented By: Admin: 07/25/22 06:22 Dose: 150 mls/hr Documented By: GC Vital Signs Vital signs: Vital Signs - 8 hr 07/25/22 05:20 07/25/22 06:12 Temperature 98.2 F Pulse Rate 83 71 Respiratory Rate 18 Blood Pressure 145/83 H 164/75 H Pulse Oximetry 97 Oxygen Delivery Method Room Air <Pool Villanueva MD - Last Filed: 07/30/22 10:25> Orders Ordered: Discontinued Medications Sodium Chloride (Normal Saline 0.9%) 1,000 mls @ 150 mls/hr IV CONT CRISPIN Last Infusion: 07/25/22 07:58 Dose: 0 mls/hr Documented By: Admin: 07/25/22 06:22 Dose: 150 mls/hr Documented By: ARNULFO Vital Signs Vital signs: Vital Signs - 8 hr 07/25/22 05:20 07/25/22 06:12 Temperature 98.2 F Pulse Rate 83 71 Respiratory Rate 18 Blood Pressure 145/83 H 164/75 H Pulse Oximetry 97 Oxygen Delivery Method Room Air MDM - Back Pain/Injury <Lj Alicea DO - Last Filed: 07/26/22 17:34> Lab Data 07/25/22 05:58 07/25/22 05:58 Labs: Lab Results 07/25/22 07/25/22 07/25/22 Range/Units 05:58 05:58 05:58 WBC 7.1 (4.5-11.0) X10^3/uL RBC 4.36 (4.0-5.2) X10^6/uL Hgb 13.4 (12.0-16.0) g/dL Hct 38.7 (36-46) % MCV 88.7 (80-100) fL MCH 30.6 (26-34) PG MCHC 34.5 (30-36) % RDW 13.1 (11.6-14.8) % Plt Count 221 (150-400) X10^3/uL Neut % (Auto) 68.9 (50-75) % Lymph % (Auto) 19.6 L (25-40) % [place] % (Auto) 8.2 (3-14) % Eos % (Auto) 2.3 (2-4) % Baso % (Auto) 1.0 (0-2) % Neut # (Auto) 4900 (1055-5447) /uL Lymph # (Auto) 1400 (5723-5186) /uL [place] # (Auto) 600 (0-900) /uL Eos # (Auto) 200 (0-450) /uL Baso # (Auto) 100 (0-100) /uL D-Dimer 630 H (<500) ng/ml Sodium 138 (137-145) mmol/L Potassium 3.9 (3.4-5.1) mmol/L Chloride 106 (98-107) mmol/L Carbon Dioxide 26 (22-32) mmol/L BUN 17 (7-17) mg/dL Creatinine 0.84 (0.52-1.04) mg/dL Estimated GFR > 60 (>60) mL/min BUN/Creatinine Ratio 20.2 (6-22) Glucose 100 (80-110) mg/dL Calcium 8.3 L (8.4-10.2) mg/dL Total Bilirubin 0.4 (0.2-1.3) mg/dL AST 27 (14-36) IU/L ALT 22 (<35) IU/L Alkaline Phosphatase 100 (38-126) U/L Total Creatine Kinase 44 (30-135) U/L CK-MB (CK-2) TNP CK-MB (CK-2) Rel Index TNP Troponin I < 0.012 (0.01-0.034) ng/mL Total Protein 6.7 (6.3-8.2) g/dL Albumin 3.7 (3.5-5.0) g/dL Globulin 3.0 (1.7-4.1) g/dL Albumin/Globulin Ratio 1.2 (1.0-2.8) Lipase 92 (23-300) U/L MDM Narrative Medical decision making narrative: CC: 59-year-old female with mid upper back pain that woke her from rest Complicating co-morbidities: Age, hypertension, hyperlipidemia Data collected from: Patient Medical records reviewed: Prior notes reviewed in our EMR Differential considered, but not limited to: Musculoskeletal, aortic dissection, aneurysmal disease, pulmonary embolism Exam documented above, pertinent findings include: Lab Test results independently reviewed as above. Pertinent findings: Independently reviewed EKG as above Imaging studies independently reviewed: Treatments: see above Re-evaluations: improved Discussion: [Kay] received patient sign-out. This is a 67-year-old female presenting with acute onset of mid upper back pain. Patient reports the pain started when rolling in bed. Laboratory evaluation reassuring. CTA chest abdomen pelvis pending at time of sign-out to evaluate for acute emergent pathology including aortic dissection versus aneurysmal disease versus alternative intrathoracic pathology. CT imaging without evidence of acute pathology, specifically no pulmonary embolism, aortic dissection or aneurysm, no clear CT evidence of explanation for the patient's pain. Discussed findings with patient and family member at bedside. Discussed plan for conservative outpatient management and close outpatient follow up. Return precautions were discussed. Patient subsequently discharged in stable condition. Disposition: see below, along with detailed discharge instructions that have been reviewed with patient as well as indications for ED re-evaluation and additional outpatient follow up <Pool Villanueva MD - Last Filed: 07/30/22 10:25> Lab Data Labs: Lab Results 07/25/22 07/25/22 07/25/22 Range/Units 05:58 05:58 05:58 WBC 7.1 (4.5-11.0) X10^3/uL RBC 4.36 (4.0-5.2) X10^6/uL Hgb 13.4 (12.0-16.0) g/dL Hct 38.7 (36-46) % MCV 88.7 (80-100) fL MCH 30.6 (26-34) PG MCHC 34.5 (30-36) % RDW 13.1 (11.6-14.8) % Plt Count 221 (150-400) X10^3/uL Neut % (Auto) 68.9 (50-75) % Lymph % (Auto) 19.6 L (25-40) % [place] % (Auto) 8.2 (3-14) % Eos % (Auto) 2.3 (2-4) % Baso % (Auto) 1.0 (0-2) % Neut # (Auto) 4900 (6980-7759) /uL Lymph # (Auto) 1400 (4351-7462) /uL [place] # (Auto) 600 (0-900) /uL Eos # (Auto) 200 (0-450) /uL Baso # (Auto) 100 (0-100) /uL D-Dimer 630 H (<500) ng/ml Sodium 138 (137-145) mmol/L Potassium 3.9 (3.4-5.1) mmol/L Chloride 106 (98-107) mmol/L Carbon Dioxide 26 (22-32) mmol/L BUN 17 (7-17) mg/dL Creatinine 0.84 (0.52-1.04) mg/dL Estimated GFR > 60 (>60) mL/min BUN/Creatinine Ratio 20.2 (6-22) Glucose 100 (80-110) mg/dL Calcium 8.3 L (8.4-10.2) mg/dL Total Bilirubin 0.4 (0.2-1.3) mg/dL AST 27 (14-36) IU/L ALT 22 (<35) IU/L Alkaline Phosphatase 100 (38-126) U/L Total Creatine Kinase 44 (30-135) U/L CK-MB (CK-2) TNP CK-MB (CK-2) Rel Index TNP Troponin I < 0.012 (0.01-0.034) ng/mL Total Protein 6.7 (6.3-8.2) g/dL Albumin 3.7 (3.5-5.0) g/dL Globulin 3.0 (1.7-4.1) g/dL Albumin/Globulin Ratio 1.2 (1.0-2.8) Lipase 92 (23-300) U/L MDM Narrative Medical decision making narrative: CC: 59-year-old female with mid upper back pain that woke her from rest Complicating co-morbidities: Age, hypertension, hyperlipidemia Data collected from: Patient Medical records reviewed: Prior notes reviewed in our EMR Differential considered, but not limited to: Musculoskeletal, aortic dissection, aneurysmal disease, pulmonary embolism Exam documented above, pertinent findings include: Lab Test results independently reviewed as above. Pertinent findings: Independently reviewed EKG as above Imaging studies independently reviewed: Scores Used: MIPS Elements: Consultations: Treatments: Re-evaluations: Discussion: [Kay] received patient sign-out. This is a 67-year-old female presenting with acute onset of mid upper back pain. Patient reports the pain started when rolling in bed. Laboratory evaluation reassuring. CTA chest abdomen pelvis pending at time of sign-out to evaluate for acute emergent pathology including aortic dissection versus aneurysmal disease versus alternative intrathoracic pathology. CT imaging without evidence of acute pathology, specifically no pulmonary embolism, aortic dissection or aneurysm, no clear CT evidence of explanation for the patient's pain. Discussed findings with patient and family member at bedside. Discussed plan for conservative outpatient management and close outpatient follow up. Return precautions were discussed. Patient subsequently discharged in stable condition. Disposition: see below, along with detailed discharge instructions that have been reviewed with patient as well as indications for ED re-evaluation and additional outpatient follow up Discharge Plan Departure Patient Disposition: Home Clinical Impression: Back pain Instructions: DI for Muscle Strain, DI for Back Spasm Activity Restrictions/Additional Instructions: *You have been diagnosed with back pain *What to do: *Please continue to take your regular medications as directed. Please use scheduled anti-inflammatory medications as discussed. If your symptoms do not improve in the next 7-10 days, please follow up with the outpatient setting with her primary care provider. Please return to the emergency department if you develop new or worsening symptoms. *Return to Emergency Department if you should have any new, worsening or concerning symptoms, such as [fever greater than 101 F, shaking chills, worsening pain, persistent vomiting or other bothersome symptoms] Prescriptions: No Action VITAMIN D 400 iu PO Q DAY Qty: 0 levothyroxine 112 mcg tablet 112 mcg PO DAILY Qty: 90 3RF Calcium Carbonate/Magnesium Oxide 2 tab PO DAILY Patient Comments: Calcium Carbonate 600 mg/Magnesium Oxide 500 mg Vitamin B-100 1 tab PO DAILY Shingrix (PF) 50 mcg/0.5 mL suspension for reconstitution 50 mcg IM ONCE Qty: 1 1RF Rx Instructions: Administer vaccine as a single dose - repeat in 2-6 months fluoxetine 40 mg capsule 40 mg PO DAILY Qty: 90 3RF lisinopril 10 mg tablet 10 mg PO Q DAY Qty: 90 3RF atorvastatin [Lipitor] 10 mg tablet 10 mg PO HS Qty: 90 3RF Pneumovax-23 25 mcg/0.5 mL solution 0.5 ml IM ONCE Qty: 0.5 0RF Rx Instructions: as a single dose Referrals: Guicho Baird ARNP [Primary Care Provider] - Stand Alone Forms: Patient Portal/API
--- NOTE | 2022-07-25 05:33 | DI.CT.S_ITS ---
PROCEDURE: CT ANGIO CHEST ABDOMEN PELVIS INDICATIONS: severe back pain, chest also, sudden, at rest, hx HTN TECHNIQUE: Precontrast 5 mm thick sections acquired from the lung apices to the iliac crests. After the administration of intravenous contrast, 2.5 mm thick sections again acquired from the lung apices to the iliac crests. Maximum intensity projection (MIP) oblique sagittal and coronal reformats were then acquired. For radiation dose reduction, the following was used: automated exposure control. COMPARISON: None. FINDINGS: Image quality: Excellent. CHEST: Lungs and pleura: No acute air space opacities. No pleural effusions or pneumothorax. Central and peripheral airways are patent and normal in caliber. <<>> Mediastinum: <<Heart size is normal. >><<>><<No pericardial effusion. >><<No mediastinal adenopathy by size criteria. >><<Thoracic aorta and central pulmonary arteries are normal in size. >><<Esophagus is normal in caliber. >><<No hiatal hernia. >> Chest wall: <<No axillary or supraclavicular adenopathy by size criteria. >>Thyroid gland <<is normal>> . ABDOMEN: Liver: <<The liver has no mass or intrahepatic biliary ductal dilatation. >> <<The portal vein and hepatic veins are patent.>> <<>> Biliary: <<The gallbladder has no gallstones, pericholecystic fluid, gallbladder wall thickening, or surrounding inflammatory change.>> <<>> Pancreas: <<The pancreas has no mass or ductal dilatation. >><<There is no surrounding inflammation.>> <<>> Spleen: <<Normal size. There are no masses.>> <<>> Adrenals: <<No hypertrophy or nodules.>> <<>> Kidneys: <<No obstructive calculus or hydronephrosis.>> <<>> <<No solid mass.>> <<No cystic mass.>> <<>> Bowel: <<The distal esophagus and stomach are normal.>> The small bowel <<has a normal caliber and appearance.>> <<The terminal ileum is normal.>> The large bowel has diverticulosis with no evidence of diverticulitis. <<The appendix is normal.>> <<No free fluid or air. >><<>> Nodes and vessels: <<No retroperitoneal or mesenteric adenopathy by size criteria. >><<Aorta and inferior vena cava are normal in size. >><<>> Abdominal wall: <<No abdominal wall mass or hernia.>> PELVIS: Genitourinary: <<The bladder has no wall thickening or mass.>> <<No bladder calcifications.>> Bone: <<No suspicious bony lesions. >><<No vertebral body compression fractures. >> IMPRESSION: 1. No pulmonary embolism, aortic dissection, or aneurysm. 2. No CT findings to explain pain and shortness of breath. Comment: Final report is concordant with preliminary interpretation by [facility] Dictated by: Vinayak Villalpando M.D. on 07/25/2022 at 8:19 Approved by: Vinayak Villalpando M.D. on 07/25/2022 at 8:22
[2022-07-25 06:07] LABS: Add Manual Diff / Slide Review NO; Basophils Absolute Auto 100 /uL (0-100); Eosinophils Absolute Auto 200 /uL (0-450); Eosinophils Percent Auto 2.3 % (2-4); Hematocrit 38.7 % (36-46); Hemoglobin 13.4 g/dL (12.0-16.0); Lymphocytes Absolute Auto 1400 /uL (1100-4500); Lymphocytes Percent Auto 19.6 % (25-40); Mean Corpuscular HGB Conc 34.5 % (30-36); Mean Corpuscular Hemoglobin 30.6 PG (26-34); Mean Corpuscular Volume 88.7 fL (80-100); Monocytes Absolute Auto 600 /uL (0-900); Monocytes Percent Auto 8.2 % (3-14); Neutrophils Absolute Auto 4900 /uL (1500-7000); Neutrophils Percent Auto 68.9 % (50-75); Platelet Count 221 X10^3/uL (150-400); Red Blood Cell Count 4.36 X10^6/uL (4.0-5.2); Red Cell Distribution Width 13.1 % (11.6-14.8); White Blood Cell Count 7.1 X10^3/uL (4.5-11.0)
[2022-07-25 06:15] LABS: D Dimer 630 ng/ml (<500)
[2022-07-25 06:18] LABS: Alanine Aminotransferase 22 IU/L (<35); Albumin 3.7 g/dL (3.5-5.0); Albumin Globulin Ratio 1.2 (1.0-2.8); Alkaline Phosphatase 100 U/L (38-126); Aspartate Aminotransferase 27 IU/L (14-36); BUN Creatinine Ratio 20.2 (6-22); Bilirubin Total 0.4 mg/dL (0.2-1.3); Blood Urea Nitrogen 17 mg/dL (7-17); Calcium 8.3 mg/dL (8.4-10.2); Carbon Dioxide 26 mmol/L (22-32); Chloride 106 mmol/L (98-107); Creatine Kinase 44 U/L (30-135); Estimated Glomerular Filt Rate > 60 mL/min (>60); Glucose 100 mg/dL (80-110); HEMOLYSIS < 15 (0-50); Lipase 92 U/L (23-300); Potassium 3.9 mmol/L (3.4-5.1); Sodium 138 mmol/L (137-145); Total Protein 6.7 g/dL (6.3-8.2)
[2022-07-25] MEDS: SODIUM CHLORIDE 0.9% 1,000 ML 150 ML IV (06:22)
[2022-07-25 06:29] LABS: Troponin I < 0.012 ng/mL (0.01-0.034)
== END 2022-07-25 07:59 | disposition home or self-care (01) ==
PROVIDERS: Emergency Medicine; Emergency Provider Emergency Medicine; PCP Registered Nurse Diabetes Educator
DX: M54.6 Pain in thoracic spine (principal)
CPT/HCPCS: 36415; 71275; 74174; 80053; 82550; 83690; 84484; 85025; 85379; 99284; Q9967